=== PATIENT | male | born 2000 | race Caucasian/White ===

== ENCOUNTER 2019-07-17 17:46 | Emergency (ER) | payer MEDICAID, SELFPAY ==
[2019-07-17 17:49] VITALS: BP 126/66; PULSE 91; RESP 18; TEMP 37.2; O2SAT 96; BMI 24.2
--- NOTE | 2019-07-17 17:55 | ED_ITS ---
Entered by Clare Jeffery, acting as scribe for Cielo Burnham HPI - Abdominal Pain General: Chief Complaint: Abdominal Pain Stated Complaint: abd pain Time Seen by Provider: 07/17/19 17:55 Source: family Mode of arrival: ambulatory Limitations: no limitations History of Present Illness: HPI narrative: 19 yo Male presents to ED with complaint of abdominal pain. Pt states that his stomach hurts. Pt's grandmother states that the patient started hurting today. Pt has pain in his right lower quadrant of his abdomen. MD elicited complaint: abdominal pain Pertinent past history: none Onset (ago): hour(s) Pain Consistency: constant Location: RLQ Exacerbating factors: nothing Relieving factors: nothing Associated Symptoms: Denies chills, coffee ground emesis, constipation, GI cramping, diarrhea, dysuria, fever(s), hematochezia, hematuria, hematemesis, melena, nausea, syncope and vomiting Review of Systems General: Reports: other (negative unless marked) Const: Denies: fever, chills, body aches, fatigue, malaise or diaphoresis Eyes: Denies: change in vision or blurry vision ENMT: Denies: throat pain, painful swallowing, hoarseness, ear pain, ear discharge, Change in hearing or nasal discharge Card: Denies: chest pain, palpitations, irregular heart rhythm, syncope, pre- syncope, shortness of breath on exertion or shortness of breath when lying down Resp: Denies: shortness of breath, productive cough, non-productive cough, wheezing, coughing up blood or chest congestion GI: Reports: abdominal pain; Denies: nausea, vomiting, vomiting blood, coffee grounds in vomit, diarrhea, constipation, cramping, blood in stool or black tarry stool : Denies: flank pain, difficulty urinating, painful urination, urinary frequency, urinary urgency, decreased urine ouput, urinary incontinence or blood in urine Musc: Denies: neck pain, back pain, extremity pain, extremity swelling, joint pain, joint swelling, joint warmth or joint stiffness Skin/Breast: Denies: rash, skin tenderness or yellow skin Neuro: Denies: headache, numbness in extremities, weakness in extremities, changes in sensation, lack of coordination, difficulty walking, dizziness, vertigo or confusion Endo: Denies: excessive thirst, tired all the time, cold intolerance, excessive sweating, flushing or hot flashes Bernabe/Lymph: Denies: easy bruising, easy bleeding, petechiae or enlarged lymph nodes All/Imm: Denies: hives, throat swelling, tongue swelling, facial swelling or acute wheezing PFSH ED PFSH: Medical History (Updated 07/17/19 @ 19:12 by Cielo Burnham) C. difficile colitis Gastroenteritis Hypomagnesemia Pingree-Gastaut syndrome Neurological disease Pneumonia Seizure Status epilepticus Surgical History (Updated 07/17/19 @ 18:13 by Clare Jeffery) History of brain surgery Status post placement of VNS (vagus nerve stimulation) device Social History Smoking and tobacco status: never smoked Physical Exam Const: COMMON NORMALS: no apparent distress, oriented x3, no limitations, healthy appearing and well nourished EXAM LIMITATIONS: no altered mental status GENERAL APPEARANCE: cooperative, well kempt and well developed ORIENTATION/CONSCIOUSNESS: Yes awake HENMT: COMMON NORMALS: normocephalic, head/scalp atraumatic, hearing grossly normal bilaterally, external ears normal, EAC's normal, external nose normal and moist oral mucous membranes HEAD & SCALP: normal to inspection, normocephalic and atraumatic FACE & SINUS: normal facial exam and face symmetric NOSE: external nose normal and nares normal EXTERNAL EAR: Yes external ears normal EXTERNAL AUDITORY CANAL: EAC's normal MOUTH: oral and palatal mucosa normal and tongue normal Eye: COMMON NORMALS: PERRL, EOMs intact bilaterally, conjunctivae normal and no scleral icterus GENERAL EYE: normal appearance of both eyes and normal light reflex CONJUNCTIVA: Yes conjunctivae normal SCLERA: sclerae normal CORNEA: Yes corneas normal PUPIL: Yes PERRL DIRECT OPHTHALMOSCOPY: Yes normal light reflex Neck/C-Spine: COMMON NORMALS: full ROM, no lymphadenopathy, supple, no meningeal signs and no JVD GENERAL: Yes normal visual inspection and Yes trachea midline CERVICAL SPINE: Yes cervical ROM normal Chest: COMMONS NORMALS: inspection of chest normal and palpation of chest normal Resp: COMMON NORMALS: normal respiratory effort, no retractions, no use of accessory muscles and clear to auscultation bilaterally EFFORT & INSPECTION: Yes able to speak in complete sentences AUSCULTATION: clear to auscultation bilaterally Cardio: COMMON NORMALS: no JVD, regular rate, regular rhythm, S1 normal heart sound, S2 normal heart sound, no gallops, no clicks, no murmurs and no rub JUGULAR VENOUS DISTENTION: no JVD RATE: regular rate RHYTHM: regular rhythm HEART SOUNDS: S1 normal and S2 normal GI: COMMON NORMALS: soft to palpation, non-tender, no hepatosplenomegaly and no masses INSPECTION: Yes normal to inspection PALPATION: Yes soft and Yes no hepatosplenomegaly : COMMON NORMALS: Yes no CVA tenderness BLADDER/KIDNEY EXAM: Yes no CVA tenderness Back/Pelvis: COMMON NORMALS: no CVA tenderness, thoracic and lumbar spine normal to inspection, no thoracic nor lumbar tenderness and thoraco-lumbar ROM normal Extremity: COMMON NORMALS: normal to inspection, full ROM, normal capillary refill, no joint enlargement, no clubbing, cyanosis or edema and no calf tenderness Neuro: COMMON NORMALS: oriented x3, CN's II-XII intact bilaterally, moves all extremities, no focal motor deficits and no sensory deficits noted MENINGEAL SIGNS: Yes no meningeal signs Psych: COMMON NORMALS: mental status grossly normal, thought process normal, cooperative, affect normal, speech normal and activity/motor behavior normal APPEARANCE: Yes well kempt SPEECH: Yes normal speech THOUGHT PROCESS: normal thought process Skin: COMMON NORMALS: no rashes or lesions noted, skin turgor normal, no jaundice, no petechiae and no mottling GENERAL SKIN EXAM: no rashes or lesions noted and turgor normal Course Vital Signs: Vital signs: Vital Signs Temperature 98.9 F 07/17/19 17:49 Pulse Rate 91 07/17/19 17:49 Respiratory Rate 18 07/17/19 17:49 Blood Pressure 126/66 07/17/19 17:49 Pulse Oximetry 96 07/17/19 17:49 MDM - Abdominal Pain MDM Narrative: Medical decision making narrative: Patient is a poor historian secondary to his chronic medical problems. CT scan is unremarkable but there is a appendicolith present in the appendix but no other secondary signs of appendicitis. On repeat exam he does not have any focal tenderness in the right lower quadrant. On repeat exam he has no evidence of tenderness on his exam. I discussed with his grandmother who is his harbour master about the possibility of a developing appendicitis and she states she understands. She agrees to return should his symptoms change or worsen. She also understands that if he has any pain at all in the morning he will need to return as appendicitis will need to be reevaluated for and ruled out. Lab Data: Attestation: I reviewed the patient's lab results. Labs: Lab Results 07/17/19 07/17/19 07/17/19 Range/Units 18:07 18:15 18:15 WBC 9.1 (4.0-10.0) 10^3/ uL RBC 4.30 (4.1-5.3) 10^6/u L Hgb 13.7 (11.7-16.6) g/dL Hct 40.6 L (42.0-52.0) % MCV 94.4 H (80-94) fL MCH 31.9 (28.0-34.0) pg MCHC 33.7 (30.0-36.0) g/dL RDW 12.1 (12.1-15.1) % Plt Count 315 (130-400) 10^3/c mm MPV 8.7 (7.4-10.4) fL Neut % (Auto) 76.5 % Lymph % (Auto) 13.4 % [place] % (Auto) 8.8 % Eos % (Auto) 0.3 % Baso % (Auto) 0.8 % Neut # (Auto) 6.9 (1.8-7.7) 10^3/u L Lymph # (Auto) 1.2 (0.8-4.8) 10^3/u L [place] # (Auto) 0.8 (0.2-0.9) 10^3/u L Eos # (Auto) 0.0 (0.0-0.8) 10^3/u L Baso # (Auto) 0.1 (0.0-0.1) 10^3/u L Nucleated RBC % (a uto) 0 % Nucleated RBCs # 0.0 /100WBC Sodium 138 (136-145) mmol/L Potassium 3.9 (3.5-5.1) mmol/L Chloride 98 (98-107) mmol/L Carbon Dioxide 26 (22-29) mmol/L Anion Gap 17.9 (5-19) BUN 10 (6-20) mg/dL Creatinine 0.5 L (0.7-1.2) mg/dL GFR Calculation 209.9 H (90-130) mL/min Glucose 100 (65-115) mg/dL Calcium 9.4 (8.5-10.5) mg/dL Total Bilirubin 0.3 (0.15-1.2) mg/dL AST 31 (0-40) U/L ALT 39 (0-41) U/L Alkaline Phosphata se 103 (40-130) IU/L Total Protein 8.1 (6.6-8.7) g/dL Albumin 4.3 (3.5-5.2) g/dL Globulin 3.8 (1.3-4.6) g/dL Lipase 25 (13-60) U/L Urine Color Yellow (Yellow) Urine Appearance Clear (CLEAR) Urine pH 7.0 (5-7) Ur Specific Gravit y 1.005 (1.005-1.030) Urine Protein Neg (Negative) Urine Glucose (UA) Norm (Normal) Urine Ketones Negative (Negative) Urine Blood Neg (Negative) Urine Nitrate Negative (Negative) Urine Bilirubin Neg (NEGATIVE) Urine Urobilinogen Norm (Negative) mg/dL Ur Leukocyte [place] ase Negative (Negative) Urine RBC None (0-2) /hpf Urine WBC None (0-5) /hpf Ur Squamous Epith Cells Rare (0-5) Urine Bacteria None (NONE) Imaging Data ^: CT Abd/Pel: Radiologist's impression: [address] [address] [address] Scan Report Signed Patient: John Guerra #: [id number] : 2000Acct#:[id number] Age/Sex: 19 MADM Date: 07/17/19 Loc: ERRoom/Bed: Attending Dr: Ordering Provider/Ordering MD: Cielo Burnham DO Date of Service: 07/17/19 Procedure(s): CT abdomen pelvis w con* [id number] Accession Number(s): [id number] Report Number: [id number] PROCEDURE INFORMATION: Exam: CT Abdomen And Pelvis With Contrast Exam date and time: 07/17/2019 6:41 PM Age: 19 years old Clinical indication: Abdominal pain; Localized; Right lower quadrant (rlq) TECHNIQUE: Imaging protocol: Computed tomography of the abdomen and pelvis with intravenous contrast. Total DLP: 630.6 mGy-cm Radiation optimization: All CT scans at this facility use at least one of these dose optimization techniques: automated exposure control; mA and/or kV adjustment per patient size (includes targeted exams where dose is matched to clinical indication); or iterative reconstruction. Contrast material: OMNI 300; Contrast volume: 95 ml; Contrast route: IV; COMPARISON: No relevant prior studies available. FINDINGS: Lungs: Limited assessment lung bases clear. Liver: Unremarkable. No mass. Gallbladder and bile ducts: Normal. No calcified stones. No ductal dilation. Pancreas: Normal. No ductal dilation. Spleen: Normal. No splenomegaly. Adrenals: Normal. No mass. Kidneys and ureters: Two tiny foci of nonobstructing calyceal nephrolithiasis inferior pole right kidney both under 2 mm. No visible nephrolithiasis left kidney. No hydronephrosis or perinephric fluid. No visible ureterolithiasis or bladder stone. Stomach and bowel: Constipation. Nonobstructive bowel pattern. No visible adynamic or reactive ileus. Appendix: Appendix noninflamed. Appendix contains a potential appendicolith measuring under 2 mm. Intraperitoneal space: Unremarkable. No free air. No significant fluid collection. Vasculature: Rare pelvic phlebolith. Lymph nodes: Unremarkable. No enlarged lymph nodes. Bladder: See Kidneys And Ureters Finding. Reproductive: Unremarkable as visualized. Bones/joints: Unremarkable. No acute fracture. Soft tissues: Unremarkable. CT/CT abdomen pelvis w con* [id number] IMPRESSION: 1. No visible evidence of acute abdominal or pelvic pathologic process. 2. The appendix is noninflamed. Small appendicolith under 2 mm. 3. Two tiny foci of nephrolithiasis inferior pole calyx right kidney under 2 mm. 4. Constipation. Radiation Dose CTDIVOL = (mGy): DLP = 630.6 (mGy-cm) Dictated By:Robert Diaz Signed By:Robert DiazSiclemencia Date/Time:07/17/191904 DD/ 03 Discharge Plan Discharge Patient Disposition: Home, Self-Care Clinical Impression: Abdominal pain Qualifiers: Abdominal location: generalized Qualified Code(s): R10.84 - Generalized abdominal pain Condition: Stable Prescriptions: No Action clobazam 20 mg tablet 40 mg PO BID RF: 0 felbamate 400 mg tablet See Rx Instructions .ROUTE .COMPLEX RF: 0 felbamate 600 mg tablet See Rx Instructions .ROUTE .COMPLEX RF: 0 azithromycin 250 mg tablet See Rx Instructions PO .COMPLEX Qty: 6 RF: 0 Multiple Vitamins Tablet 1 tab PO DAILY RF: 0 melatonin 3 mg Tablet 3 mg PO BEDTIME PRN (Reason: Sleep) RF: 0 Diastat AcuDial 12.5-15-17.5-20 mg Kit 17.5 mg TN PRN PRN (Reason: Seizures) RF: 0 Discharge Orders: Discharge Order (Routine); Ordered 07/17/19 Ordered By: Cielo Burnham Referrals: Hilda Hall MD [Primary Care Provider] - Discharge Diet: Advance as tolerated Discharge Activity: Increase activity as tolerated Patient Instructions: Abdominal Pain (ED) Activity Restrictions/Additional Instructions: Please return to the ER immediately for any of the signs or symptoms listed on your discharge instruction sheets, worsening/changing of your symptoms, you are not getting better as quickly as expected, or for ANY other cause or concerns. Developing appendicitis is still a potential cause for your son symptoms. If his pain worsens or he has any pain at all in the morning please return him to the ER as he will need reevaluation to evaluate for appendicitis. Coding Level of Care Code ED Assistant Director Of Plant Operations for Chg Fwd Exam Comprehensive The documentation recorded by the Jose D mcfarlane Carmen, accurately reflects the service I personally performed and the decisions made by Tej lester Eli N Jul 17, 2019 17:46
--- NOTE | 2019-07-17 18:04 | CTR_ITS ---
PROCEDURE INFORMATION: Exam: CT Abdomen And Pelvis With Contrast Exam date and time: 07/17/2019 6:41 PM Age: 19 years old Clinical indication: Abdominal pain; Localized; Right lower quadrant (rlq) TECHNIQUE: Imaging protocol: Computed tomography of the abdomen and pelvis with intravenous contrast. Total DLP: 630.6 mGy-cm Radiation optimization: All CT scans at this facility use at least one of these dose optimization techniques: automated exposure control; mA and/or kV adjustment per patient size (includes targeted exams where dose is matched to clinical indication); or iterative reconstruction. Contrast material: OMNI 300; Contrast volume: 95 ml; Contrast route: IV; COMPARISON: No relevant prior studies available. FINDINGS: Lungs: Limited assessment lung bases clear. Liver: Unremarkable. No mass. Gallbladder and bile ducts: Normal. No calcified stones. No ductal dilation. Pancreas: Normal. No ductal dilation. Spleen: Normal. No splenomegaly. Adrenals: Normal. No mass. Kidneys and ureters: Two tiny foci of nonobstructing calyceal nephrolithiasis inferior pole right kidney both under 2 mm. No visible nephrolithiasis left kidney. No hydronephrosis or perinephric fluid. No visible ureterolithiasis or bladder stone. Stomach and bowel: Constipation. Nonobstructive bowel pattern. No visible adynamic or reactive ileus. Appendix: Appendix noninflamed. Appendix contains a potential appendicolith measuring under 2 mm. Intraperitoneal space: Unremarkable. No free air. No significant fluid collection. Vasculature: Rare pelvic phlebolith. Lymph nodes: Unremarkable. No enlarged lymph nodes. Bladder: See Kidneys And Ureters Finding. Reproductive: Unremarkable as visualized. Bones/joints: Unremarkable. No acute fracture. Soft tissues: Unremarkable. CT/CT abdomen pelvis w con* [id number] IMPRESSION: 1. No visible evidence of acute abdominal or pelvic pathologic process. 2. The appendix is noninflamed. Small appendicolith under 2 mm. 3. Two tiny foci of nephrolithiasis inferior pole calyx right kidney under 2 mm. 4. Constipation. Radiation Dose CTDIVOL = (mGy): DLP = 630.6 (mGy-cm)
[2019-07-17 18:28] LABS: Basophils # 0.1 10^3/uL (0.0-0.1); Basophils % 0.8 %; Eosinophils % 0.3 %; Hematocrit 40.6 % (42.0-52.0); Hemoglobin 13.7 g/dL (11.7-16.6); Lymphocytes # 1.2 10^3/uL (0.8-4.8); Lymphocytes % 13.4 %; Mean Corpuscular HGB Conc 33.7 g/dL (30.0-36.0); Mean Corpuscular Hemoglobin 31.9 pg (28.0-34.0); Mean Corpuscular Volume 94.4 fL (80-94); Mean Platelet Volume 8.7 fL (7.4-10.4); Monocytes # 0.8 10^3/uL (0.2-0.9); Monocytes % 8.8 %; Neutrophils # 6.9 10^3/uL (1.8-7.7); Neutrophils % 76.5 %; Nucleated Red Blood Cells % 0 %; Platelet Count 315 10^3/cmm (130-400); Red Cell Distribution Width 12.1 % (12.1-15.1); White Blood Count 9.1 10^3/uL (4.0-10.0)
[2019-07-17 18:49] LABS: Bilirubin Urine Neg (NEGATIVE); Blood Urine Neg (Negative); Glucose Urine UA Norm (Normal); Ketones Urine Negative (Negative); Leukocyte Esterase Urine Negative (Negative); Nitrate Urine Negative (Negative); Protein Urine Neg (Negative); Specific Gravity, Urine 1.005 (1.005-1.030); Urine Appearance Clear (CLEAR); Urine Color Yellow (Yellow); Urobilinogen Urine Norm (Negative)
[2019-07-17] MEDS: iohexol 300 mg/mL 100 mL Btl 95 ML IV (18:49)
[2019-07-17 18:52] LABS: Alanine Aminotransferase 39 U/L (0-41); Albumin Level 4.3 g/dL (3.5-5.2); Alkaline Phosphatase 103 IU/L (40-130); Anion Gap 17.9 (5-19); Aspartate Amino Transferase 31 U/L (0-40); Blood Urea Nitrogen 10 mg/dL (6-20); Calcium 9.4 mg/dL (8.5-10.5); Carbon Dioxide 26 mmol/L (22-29); Chloride 98 mmol/L (98-107); Globulin 3.8 g/dL (1.3-4.6); Glomerular Filtration Rate 209.9 mL/min (90-130); Glucose 100 mg/dL (65-115); Lipase 25 U/L (13-60); Potassium 3.9 mmol/L (3.5-5.1); Sodium 138 mmol/L (136-145); Total Bilirubin 0.3 mg/dL (0.15-1.2); Total Protein 8.1 g/dL (6.6-8.7)
[2019-07-17] MEDS: sodium chloride 0.9% 1,000 ML 999 ML IV (18:58)
[2019-07-17 19:07] LABS: Add Urine Culture? No; Squamous Epithelial Cell Urine RARE (0-5)
[2019-07-17 20:39] VITALS: BP 112/63; PULSE 88; RESP 16; O2SAT 98
== END 2019-07-17 20:40 | disposition home or self-care (01) ==
PROVIDERS: Emergency Provider Emergency Medicine; Family Provider Specialist; PCP Specialist
DX: R10.84 Generalized abdominal pain (principal); G40.811 Lennox-Gastaut syndrome, not intractable, with status epilepticus; K38.1 Appendicular concretions; N20.0 Calculus of kidney; K59.00 Constipation, unspecified
CPT/HCPCS: 12345; 74177; 80053; 81001; 83690; 85025; 96360; 99282; 99283; A9270; J7030; Q9967

== ENCOUNTER 2019-11-18 21:20 | Emergency (ER) | payer MEDICAID, SELFPAY ==
[2019-11-18 21:32] VITALS: BP 112/70; PULSE 127; RESP 20; TEMP 37.8; O2SAT 96
--- NOTE | 2019-11-18 21:38 | ED_ITS ---
HPI - Fever General: Chief Complaint: Fever Stated Complaint: fever Time Seen by Provider: 11/18/19 21:36 History of Present Illness: HPI Narrative: Patient is a 19-year-old male comes to the ED for fever. Grandmother is present. Patient has a past medical hi story of Dereje-Gastaut Syndrome. Grandmother says today patient developed a fever at home of about 101 degrees and patient also developed a full body rash today as well. Rash is red but is not pruritic. Patient was outside in the sun on Sunday and was mowing the grass. Grandmother denies any symptoms such as cough, nasal drainage/congestion, ear pain, sore throat, nausea/vomiting, abdominal pain, shortness of breath, dysuria, hematuria, diarrhea or blood in the stool. Patient does have some issues with constipation and takes MiraLAX to help with symptoms. Patient is up-to-date on all his vaccinations. Associated symptoms: Deny abdominal pain, flank pain, chills, chest pain, diarrhea, dysuria, headache(s), nasal congestion, nausea or vomiting Review of Systems Const: Reports: fever(s); Denies: chills or fatigue Eyes: Denies: change in vision or eye discomfort ENMT: Denies: throat pain, odynophagia, nasal discharge or nasal congestion Card: Denies: chest pain, palpitations, edema, swelling of feet/ankles, dyspnea on exertion or orthopnea Resp: Denies: dyspnea, productive cough or non-productive cough GI: Denies: abdominal pain, nausea, vomiting, diarrhea, constipation or hematochezia : Denies: flank pain, difficulty urinating, dysuria or hematuria Musc: Denies: neck pain, back pain or extremity swelling Skin/Breast: Reports: rash; Denies: new lesions Neuro: Denies: headache(s), numbness in extremities or weakness in extremities PFSH ED PFSH: Medical History C. difficile colitis Gastroenteritis Hypomagnesemia Dereje-Gastaut syndrome Neurological disease Pneumonia Seizure Status epilepticus Surgical History History of brain surgery Status post placement of VNS (vagus nerve stimulation) device Social History Smoking and tobacco status: never smoked Physical Exam Const: COMMON NORMALS: patient oriented x3 HENMT: COMMON NORMALS: normocephalic HEAD & SCALP: normocephalic TYMPANIC MEMBRANE: TM abnormal and unable to visualize TM (Earwax blocked visualization of TMs bilaterally) MOUTH: moist mucous membranes abnormal Details: parched and lip abnormal (Lips appear dry.) THROAT: posterior oropharynx normal and uvula midline Eye: COMMON NORMALS: Equal, round and reactive pupils present PUPIL: Yes Equal, round and reactive pupils present Neck/C-Spine: COMMON NORMALS: supple GENERAL: Yes normal visual inspection Resp: COMMON NORMALS: normal respiratory effort, No retractions, No use of accessory muscles and clear to auscultation bilaterally AUSCULTATION: clear to auscultation bilaterally Cardio: COMMON NORMALS: regular rate, regular rhythm, S1 normal heart sound present, S2 normal heart sound present, No gallops present (Cardio), No clicks present (Cardio), No murmurs present (Cardio) and Peripheral pulses 2+ throughout RATE: regular rate RHYTHM: regular rhythm HEART SOUNDS: S1 normal heart sound present and S2 normal heart sound present PERIPHERAL PULSES: Peripheral pulses 2+ throughout GI: COMMON NORMALS: Normal to inspection, nondistended, normoactive bowel sounds present, Soft to palpation, non-tender and no masses PALPATION: Yes Soft to palpation : COMMON NORMALS: Yes no CVA tenderness BLADDER/KIDNEY EXAM: Yes no CVA tenderness Back/Pelvis: COMMON NORMALS: no CVA tenderness Extremity: COMMON NORMALS: normal to inspection Neuro: COMMON NORMALS: patient oriented x3 Skin: NARRATIVE SKIN EXAM: Patient erythematous sandpaper feeling rash on trunk. He also had erythematous rash on both right and left upper and lower extremities. Rash is not pruritic. GENERAL SKIN EXAM: dry skin Course Vital Signs: Vital signs: Vital Signs Temperature 98.9 F 11/18/19 23:42 Pulse Rate 94 11/19/19 01:14 Respiratory Rate 16 11/19/19 01:14 Blood Pressure 126/86 11/19/19 01:14 Pulse Oximetry 100 11/19/19 01:14 MDM - Fever MDM Narrative: Medical decision making narrative: Patient is a 19-year-old male who comes to the ED with a fever and rash. 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 Patient's grandmother is present. Patient had no other symptoms besides fever and rash. Here in the ED patient's initial temperature was 100.1. Physical exam was remarkable for erythemic rash on upper and lower extremities. Also on the abdomen he had a red and sandpaperlike rash. Patient did have some dry mucous membranes in the mouth. Chest x-ray showed no acute findings. CBC, CMP and UA were unremarkable. Strep was negative and influenza was negative. Patient was given 2L IV fluids and Tylenol and his fever went down to 98.9 while here on the unit. Patient was diagnosed with a viral syndrome and discharged. Patient was told to take Tylenol or ibuprofen for fever. Drink plenty fluids and stay hydrated. Return to ED if you have any worsening symptoms. Follow-up with PCP in 7 to 10 days for reevaluation. Patient's grandmother understood and agreed with plan. Lab Data: Attestation: I reviewed the patient's lab results. Labs: Lab Results 11/18/19 11/18/19 11/18/19 Range/Units 21:50 21:50 22:57 WBC 9.5 (4.0-10.0) 10^3/ uL RBC 4.68 (4.1-5.3) 10^6/u L Hgb 15.3 (11.7-16.6) g/dL Hct 44.7 (42.0-52.0) % MCV 95.5 H (80-94) fL MCH 32.7 (28.0-34.0) pg MCHC 34.2 (30.0-36.0) g/dL RDW 12.6 (12.1-15.1) % Plt Count 277 (130-400) 10^3/c mm MPV 8.9 (7.4-10.4) fL Neut % (Auto) 93.2 % Lymph % (Auto) 3.2 % [place] % (Auto) 3.0 % Eos % (Auto) 0.1 % Baso % (Auto) 0.3 % Neut # (Auto) 8.9 H (1.8-7.7) 10^3/u L Lymph # (Auto) 0.3 L (0.8-4.8) 10^3/u L [place] # (Auto) 0.3 (0.2-0.9) 10^3/u L Eos # (Auto) 0.0 (0.0-0.8) 10^3/u L Baso # (Auto) 0.0 (0.0-0.1) 10^3/u L Nucleated RBC % (a uto) 0 % Nucleated RBCs # 0.0 /100WBC Sodium 138 (136-145) mmol/L Potassium 3.6 (3.5-5.1) mmol/L Chloride 99 (98-107) mmol/L Carbon Dioxide 26 (22-29) mmol/L Anion Gap 16.6 (5-19) BUN 10 (6-20) mg/dL Creatinine 0.6 L (0.7-1.2) mg/dL GFR Calculation 170.1 H (90-130) mL/min Glucose 106 (65-115) mg/dL Calculated Osmolal ity 282 L (285-295) mOsm/k g Calcium 9.7 (8.5-10.5) mg/dL Total Bilirubin 0.6 (0.15-1.2) mg/dL AST 32 (0-40) U/L ALT 44 H (0-41) U/L Alkaline Phosphata se 96 (40-130) IU/L Total Protein 7.9 (6.6-8.7) g/dL Albumin 4.8 (3.5-5.2) g/dL Globulin 3.1 (1.3-4.6) g/dL Urine Color (Yellow) Urine Appearance (CLEAR) Urine pH (5-7) Ur Specific Gravit y (1.005-1.030) Urine Protein (Negative) Urine Glucose (UA) (Normal) Urine Ketones (Negative) Urine Blood (Negative) Urine Nitrate (Negative) Urine Bilirubin (NEGATIVE) Prot Sulfosalicyli c Acd (Negative) Urine Urobilinogen (Negative) mg/dL Ur Leukocyte [place] ase (Negative) Urine RBC (0-2) /hpf Urine WBC (0-5) /hpf Ur Squamous Epith Cells (0-5) Calcium Oxalate Cr ystal /hpf Amorphous Sediment Urine Bacteria (NONE) Hyaline Casts Urine Mucus Influenza Type A A g (Negative) Influenza Type B A g (Negative) Group A Strep Rapi d Negative (Negative) 11/18/19 11/19/19 Range/Units 22:57 00:23 WBC (4.0-10.0) 10^3/ uL RBC (4.1-5.3) 10^6/u L Hgb (11.7-16.6) g/dL Hct (42.0-52.0) % MCV (80-94) fL MCH (28.0-34.0) pg MCHC (30.0-36.0) g/dL RDW (12.1-15.1) % Plt Count (130-400) 10^3/c mm MPV (7.4-10.4) fL Neut % (Auto) % Lymph % (Auto) % [place] % (Auto) % Eos % (Auto) % Baso % (Auto) % Neut # (Auto) (1.8-7.7) 10^3/u L Lymph # (Auto) (0.8-4.8) 10^3/u L [place] # (Auto) (0.2-0.9) 10^3/u L Eos # (Auto) (0.0-0.8) 10^3/u L Baso # (Auto) (0.0-0.1) 10^3/u L Nucleated RBC % (a uto) % Nucleated RBCs # /100WBC Sodium (136-145) mmol/L Potassium (3.5-5.1) mmol/L Chloride (98-107) mmol/L Carbon Dioxide (22-29) mmol/L Anion Gap (5-19) BUN (6-20) mg/dL Creatinine (0.7-1.2) mg/dL GFR Calculation (90-130) mL/min Glucose (65-115) mg/dL Calculated Osmolal ity (285-295) mOsm/k g Calcium (8.5-10.5) mg/dL Total Bilirubin (0.15-1.2) mg/dL AST (0-40) U/L ALT (0-41) U/L Alkaline Phosphata se (40-130) IU/L Total Protein (6.6-8.7) g/dL Albumin (3.5-5.2) g/dL Globulin (1.3-4.6) g/dL Urine Color Yellow (Yellow) Urine Appearance Sl hazy (CLEAR) Urine pH 8 H (5-7) Ur Specific Gravit y 1.015 (1.005-1.030) Urine Protein Neg (Negative) Urine Glucose (UA) Norm (Normal) Urine Ketones Negative (Negative) Urine Blood Neg (Negative) Urine Nitrate Negative (Negative) Urine Bilirubin Neg (NEGATIVE) Prot Sulfosalicyli c Acd Negative (Negative) Urine Urobilinogen 4 H (Negative) mg/dL Ur Leukocyte [place] ase Negative (Negative) Urine RBC 0-4 H (0-2) /hpf Urine WBC 0-4 H (0-5) /hpf Ur Squamous Epith Cells 5-10 H (0-5) Calcium Oxalate Cr ystal 0-4 H /hpf Amorphous Sediment Not Reportable Urine Bacteria 1+ H (NONE) Hyaline Casts 0-4 H Urine Mucus 1+ Influenza Type A A g Negative (Negative) Influenza Type B A g Negative (Negative) Group A Strep Rapi d (Negative) Imaging Data^: CXR: Attestation: I personally reviewed and interpreted this imaging study as follows: My impression: Chest x-ray showed no acute findings. Pending final radiology report. Discharge Plan Discharge Patient Disposition: Home, Self-Care Clinical Impression: Viral syndrome Fever Qualifiers: Fever type: unspecified Qualified Code(s): R50.9 - Fever, unspecified Condition: Stable Prescriptions: No Action clobazam 20 mg tablet 40 mg PO BID RF: 0 felbamate 400 mg tablet See Rx Instructions .ROUTE .COMPLEX RF: 0 felbamate 600 mg tablet See Rx Instructions .ROUTE .COMPLEX RF: 0 multivitamin [Multiple Vitamins] Tablet 1 tab PO DAILY RF: 0 melatonin 3 mg Tablet 3 mg PO BEDTIME PRN (Reason: Sleep) RF: 0 diazepam [Diastat AcuDial] 12.5-15-17.5-20 mg Kit 17.5 mg [place] PRN PRN (Reason: Seizures) RF: 0 Aleve 220 mg Tablet 220 mg PO Q12H PRN (Reason: Fever) RF: 0 Discharge Orders: Discharge Order (Routine); Ordered 11/19/19 Ordered By: Freeman Leyva Referrals: Hilda Hall MD [Primary Care Provider] - Discharge Diet: Regular Discharge Activity: Resume usual activity Patient Instructions: Viral Syndrome - Adult Activity Restrictions/Additional Instructions: Follow-up with medical provider as directed in 7-10 days. Continue home medications as previously prescribed. Return to the ER or your medical provider if condition worsens. Please read and understand discharge instructions. If any questions, please ask. Discharge Date/Time: 11/19/19 01:15 Coding Level of Care Code ED Documentum Consultant for Susanne Fwzain Exam Comprehensive
--- NOTE | 2019-11-18 21:39 | XR_ITS ---
WS: [id number] PORTABLE CHEST HISTORY: fever and tachypnea COMPARISON: 04/24/2017 Vagal nerve stimulator generator over the LEFT thorax. Lead wires extend into the soft tissues of the LEFT supraclavicular region. Lungs are clear and well expanded. No pleural effusion or pneumothorax. Cardiac size: Normal. Mediastinum/Aorta: Normal mediastinum. No osseous abnormality seen. XR/XR chest 1V portable [id number] IMPRESSION: Unremarkable portable chest.
[2019-11-18 22:15] LABS: Basophils % 0.3 %; Eosinophils % 0.1 %; Hematocrit 44.7 % (42.0-52.0); Hemoglobin 15.3 g/dL (11.7-16.6); Lymphocytes # 0.3 10^3/uL (0.8-4.8); Lymphocytes % 3.2 %; Mean Corpuscular HGB Conc 34.2 g/dL (30.0-36.0); Mean Corpuscular Hemoglobin 32.7 pg (28.0-34.0); Mean Corpuscular Volume 95.5 fL (80-94); Mean Platelet Volume 8.9 fL (7.4-10.4); Monocytes # 0.3 10^3/uL (0.2-0.9); Neutrophils # 8.9 10^3/uL (1.8-7.7); Neutrophils % 93.2 %; Nucleated Red Blood Cells % 0 %; Platelet Count 277 10^3/cmm (130-400); Red Blood Count 4.68 10^6/uL (4.1-5.3); Red Cell Distribution Width 12.6 % (12.1-15.1); White Blood Count 9.5 10^3/uL (4.0-10.0)
[2019-11-18 22:31] VITALS: BP 128/55; PULSE 112; RESP 18; TEMP 37.8; O2SAT 100
[2019-11-18 22:32] LABS: Alanine Aminotransferase 44 U/L (0-41); Albumin Level 4.8 g/dL (3.5-5.2); Alkaline Phosphatase 96 IU/L (40-130); Anion Gap 16.6 (5-19); Aspartate Amino Transferase 32 U/L (0-40); Blood Urea Nitrogen 10 mg/dL (6-20); Calcium 9.7 mg/dL (8.5-10.5); Carbon Dioxide 26 mmol/L (22-29); Chloride 99 mmol/L (98-107); Globulin 3.1 g/dL (1.3-4.6); Glomerular Filtration Rate 170.1 mL/min (90-130); Glucose 106 mg/dL (65-115); Osmolality Calculated 282 mOsm/kg (285-295); Potassium 3.6 mmol/L (3.5-5.1); Sodium 138 mmol/L (136-145); Total Bilirubin 0.6 mg/dL (0.15-1.2); Total Protein 7.9 g/dL (6.6-8.7)
[2019-11-18] MEDS: acetaminophen 500 mg Tablet PO (23:01)
[2019-11-18] MEDS: sodium chloride 0.9% 1,000 ML 999 ML IV (23:05)
[2019-11-18 23:42] VITALS: BP 137/67; PULSE 114; RESP 18; TEMP 37.2; O2SAT 100
[2019-11-19] MEDS: sodium chloride 0.9% 1,000 ML 999 ML IV (00:06)
[2019-11-19 00:08] LABS: Rapid Strep A Test Negative (Negative)
[2019-11-19 00:12] LABS: Influenza A by IFA Negative (Negative); Influenza B by IFA Negative (Negative)
[2019-11-19 00:43] LABS: Add Urine Microscopic? YES; Bacteria Urine 1+; Bilirubin Urine Neg (NEGATIVE); Blood Urine Neg (Negative); Calcium Oxalate Crystals Urine 0-4 /hpf; Glucose Urine UA Norm (Normal); Hyaline Casts Urine 0-4; Ketones Urine Negative (Negative); Leukocyte Esterase Urine Negative (Negative); Mucus Urine 1+; Nitrate Urine Negative (Negative); Protein Urine Neg (Negative); RBC Urine 0-4 /hpf (0-2); Specific Gravity, Urine 1.015 (1.005-1.030); Sulfosalicylic Acid Urine Negative (Negative); Urine Appearance SL Hazy (CLEAR); Urine Color Yellow (Yellow); Urobilinogen Urine 4 mg/dL (Negative); WBC Urine 0-4 /hpf (0-5); pH Urine 8 (5-7)
[2019-11-19 01:14] VITALS: BP 126/86; PULSE 94; RESP 16; O2SAT 100
== END 2019-11-19 01:15 | disposition home or self-care (01) ==
PROVIDERS: Emergency Provider Physician Assistant; PCP Specialist
DX: B34.9 Viral infection, unspecified (principal)
CPT/HCPCS: 12345; 36415; 71045; 80053; 81001; 81003; 85025; 87040; 87081; 87804; 87880; 96360; 96361; 99283; J7030

== ENCOUNTER 2022-05-03 09:53 | Emergency (ER) | payer MEDICAID, SELFPAY ==
[2022-05-03] VITALS (16 sets, daily range): BP systolic 118–135; BP diastolic 56–76; PULSE 76–111; RESP 14–35; TEMP 36.8; O2SAT 81–100
--- NOTE | 2022-05-03 09:55 | ED_ITS ---
HPI - Seizure General: Chief Complaint: Seizure Stated Complaint: AMS/ SEIZURE Time Seen by Provider: 05/03/22 09:55 Limitations: altered mental status History of Present Illness: HPI Narrative: 22-year-old male with history of [place] Gestaut syndrome per chart review presenting to the emergency department due to seizure with altered mental status. Per EMS report the patient's family member found him seizing on the couch and he was seizing for at least 25 minutes. No reported fall or trauma associated with this. He was administered 10 of rectal diazepam and tonic- clonic movements stopped. He has been somewhat altered and somnolent since that time though does appear to be making progress towards waking. History is other pascual limited as the patient is nonverbal, he does appear to regard and looks around with his eyes, no evidence of continued seizure. Review of Systems General: Reports: ROS unobtainable due to mental status [facility] ED PFSH: Medical History C. difficile colitis Gastroenteritis Hypomagnesemia [place]-Gast[place] syndrome Neurological disease Pneumonia Seizure Status epilepticus Surgical History History of brain surgery Status post placement of VNS (vagus nerve stimulation) device Social History Smoking and tobacco status: never smoked Physical Exam Const: GENERAL APPEARANCE: cooperative and well developed HENMT: COMMON NORMALS: normocephalic and atraumatic HEAD & SCALP: normocephalic and atraumatic THROAT: posterior oropharynx normal Eye: COMMON NORMALS: conjunctivae normal CONJUNCTIVA: Yes conjunctivae normal SCLERA: sclerae normal Neck/C-Spine: COMMON NORMALS: supple GENERAL: Yes trachea midline Resp: COMMON NORMALS: normal respiratory effort and clear to auscultation bilaterally AUSCULTATION: clear to auscultation bilaterally Cardio: COMMON NORMALS: regular rate and regular rhythm RATE: regular rate and tachycardic RHYTHM: regular rhythm GI: COMMON NORMALS: Soft to palpation PALPATION: Yes Soft to palpation and No Tenderness to palpation present (GI) Extremity: GENERAL: Yes normal exam except as noted and No edema Neuro: COMMON NORMALS: moves all extremities SENSORIUM/ORIENTATION: Yes Orientation impaired and Yes somnolent Course Vital Signs: Vital signs: Vital Signs Temperature 98.3 F 05/03/22 09:54 Pulse Rate 76 05/03/22 14:55 Respiratory Rate 16 05/03/22 14:55 Blood Pressure 135/76 05/03/22 14:55 Pulse Oximetry 97 05/03/22 14:55 Oxygen Delivery Me thod 05/03/22 14:55 Oxygen Flow Rate 2 05/03/22 10:20 MDM - Seizure MDM Narrative Medical decision making narrative: 22-year-old gentleman presenting with seizure. Patient exam as above consistent with postictal state. EKG sinus tachycardia, no arrhythmia noted. Labs notable for mild leukocytosis which is likely reactive, normal hemoglobin. Metabolic panel without acute derangement to explain seizure. Patient treated with IV fluids which improved heart rate. Discussion with patient's family member at bedside seizure is very typical for him. No head trauma associated with the event and given clinical improvement with time I do not feel that imaging is necessary. Patient observed until able to tolerate p.o. intake and family numbers comfortable taking patient home. Most likely etiology of seizure in the context of otherwise seizure disorder. The results of ED evaluation were discussed with the patient including prescriptions and/or symptomatic cares (if applicable) including appropriate and responsible use, followup plan, and return precautions. The patient verbalized understanding and felt safe for discharge. Medical Records Attestation: I reviewed the patient's medical records. Lab Data Attestation: I reviewed the patient's lab results. 05/03/22 10:02 05/03/22 10:02 Labs: Laboratory Results WBC 13.3 10^3/uL (4.0-10.0) H 05/03/22 10:02 RBC 4.35 10^6/uL (4.1-5.3) 05/03/22 10:02 Hgb 14.3 g/dL (11.7-16.6) 05/03/22 10:02 Hct 41.7 % (42.0-52.0) L 05/03/22 10:02 MCV 95.9 fl (80-94) H 05/03/22 10:02 MCH 32.9 pg (28.0-34.0) 05/03/22 10:02 MCHC 34.3 g/dL (30.0-36.0) 05/03/22 10:02 RDW 12.3 % (12.1-15.1) 05/03/22 10:02 Plt Count 319 10^3/cmm (130-400) 05/03/22 10:02 MPV 8.8 fL (7.4-10.4) 05/03/22 10:02 Neut % (Auto) 84.8 % 05/03/22 10:02 Lymph % (Auto) 4.8 % 05/03/22 10:02 [place] % (Auto) 9.0 % 05/03/22 10:02 Eos % (Auto) 0.2 % 05/03/22 10:02 Baso % (Auto) 0.3 % 05/03/22 10:02 Neut # (Auto) 11.29 10^3/uL (1.8-7.7) H 05/03/22 10:02 Lymph # (Auto) 0.6 10^3/uL (0.8-4.8) L 05/03/22 10:02 [place] # (Auto) 1.2 10^3/uL (0.2-0.9) H 05/03/22 10:02 Eos # (Auto) 0.0 10^3/uL (0.0-0.8) 05/03/22 10:02 Baso # (Auto) 0.0 10^3/uL (0.0-0.1) 05/03/22 10:02 Nucleated RBC % (auto) 0 % 05/03/22 10:02 Nucleated RBCs # 0.0 /100WBC 05/03/22 10:02 Sodium 139 mmol/L (136-145) 05/03/22 10:02 Potassium 3.6 mmol/L (3.5-5.1) 05/03/22 10:02 Chloride 102 mmol/L (98-107) 05/03/22 10:02 Carbon Dioxide 23 mmol/L (22-29) 05/03/22 10:02 Anion Gap 17.6 (5-19) 05/03/22 10:02 BUN 10 mg/dL (6-20) 05/03/22 10:02 Creatinine 0.8 mg/dL (0.7-1.2) 05/03/22 10:02 GFR Calculation 118.8 mL/min (90-130) 05/03/22 10:02 Glucose 83 mg/dL (65-115) 05/03/22 10:02 Calculated Osmolality 286 mOsm/kg (285-295) 05/03/22 10:02 Calcium 9.6 mg/dL (8.5-10.5) 05/03/22 10:02 Discharge Plan Discharge Patient Disposition: Home Clinical Impression: Generalized seizure Condition: Stable Prescriptions: No Action clobazam 20 mg tablet 40 mg PO BID felbamate 400 mg tablet See Rx Instructions .ROUTE .COMPLEX Rx Instructions: 2 tabs q am, 2 tabs at noon, 1 tab in the evening felbamate 600 mg tablet See Rx Instructions .ROUTE .COMPLEX Rx Instructions: 600 mg PO BID with breakfast and lunch and 1200 mg po in the evening multivitamin [Multiple Vitamins] Tablet 1 tab PO QAM melatonin 3 mg Tablet 3 mg PO BEDTIME PRN (Reason: Sleep) diazepam [Diastat AcuDial] 12.5-15-17.5-20 mg Kit 17.5 mg [place] PRN PRN (Reason: Seizures) naproxen sodium [Aleve] 220 mg Tablet 220 mg PO Q12H PRN (Reason: Pain) Calcium + D 600 mg-5 mcg (200 unit) Tablet 1 tab PO DAILY Discharge Orders: Discharge ED (Routine); Ordered 05/03/22 Ordered By: Merlin Panchal Referrals: Hilda Hall MD [Primary Care Provider] - Discharge Diet: Usual diet Discharge Activity: Limit activity as instructed Patient Instructions: Recurrent Seizures in Adults (ED) Activity Restrictions/Additional Instructions: Thank you for visiting the emergency department. You were seen and evaluated for seizure. The most likely cause of seizure is secondary to seizure disorder. Please call and follow-up with your neurologist. Return to the emergency department for anything that you are concerned about a feel needs emergency department evaluation. Coding Level of Care Code ED Resident Service Coordinator for Susanne Haskins
--- NOTE | 2022-05-03 10:02 | ECG_ITS ---
[facility] Test Date: 2022-05-03 Pat Name: John Guerra Department: Room: Gender: Male [employer]: : 2000 Requested By: Merlin Panchal Order Number: [id number] Hernandez MD: Kayleigh Adams M.D. Measurements Intervals [place] Rate: 101 P: 51 AL: 146 QRS: 61 QRSD: 110 T: 48 QT: 337 QTc: 438 Interpretive Statements SINUS TACHYCARDIA NONSPECIFIC T-WAVE ABNORMALITY No previous ECG available for comparison Electronically Signed On 05-04-2022 9:24:45 PRIMER PRESS OPERATOR by Kayleigh Adams M.D. [id number]
[2022-05-03 10:10] LABS: Basophils % 0.3 %; Eosinophils % 0.2 %; Hematocrit 41.7 % (42.0-52.0); Hemoglobin 14.3 g/dL (11.7-16.6); Lymphocytes # 0.6 10^3/uL (0.8-4.8); Lymphocytes % 4.8 %; Mean Corpuscular HGB Conc 34.3 g/dL (30.0-36.0); Mean Corpuscular Hemoglobin 32.9 pg (28.0-34.0); Mean Corpuscular Volume 95.9 fl (80-94); Mean Platelet Volume 8.8 fL (7.4-10.4); Monocytes # 1.2 10^3/uL (0.2-0.9); Neutrophils # 11.29 10^3/uL (1.8-7.7); Neutrophils % 84.8 %; Nucleated Red Blood Cells % 0 %; Platelet Count 319 10^3/cmm (130-400); Red Blood Count 4.35 10^6/uL (4.1-5.3); Red Cell Distribution Width 12.3 % (12.1-15.1); White Blood Count 13.3 10^3/uL (4.0-10.0)
[2022-05-03] MEDS: sodium chloride 0.9% 1,000 ML 999 ML IV (10:28)
[2022-05-03 10:33] LABS: Blood Urea Nitrogen 10 mg/dL (6-20); Calcium 9.6 mg/dL (8.5-10.5); Carbon Dioxide 23 mmol/L (22-29); Chloride 102 mmol/L (98-107); Glomerular Filtration Rate 118.8 mL/min (90-130); Glucose 83 mg/dL (65-115); Osmolality Calculated 286 mOsm/kg (285-295); Sodium 139 mmol/L (136-145)
[2022-05-03 11:09] LABS: Anion Gap 17.6 (5-19); Potassium 3.6 mmol/L (3.5-5.1)
== END 2022-05-03 14:57 | disposition home or self-care (01) ==
PROVIDERS: Emergency Provider Emergency Medicine; PCP Specialist
DX: R56.9 Unspecified convulsions (principal)
CPT/HCPCS: 80048; 85025; 93005; 96360; 99284; J7030